=== PATIENT | male | born 1975 | race American Indian/Alaskan Native ===

== ENCOUNTER 2017-09-13 20:58 | Emergency (ER) | payer OTHER ==
[2017-09-13 21:24] VITALS: BP 164/122
[2017-09-13 21:57] LABS: Basophils % (Auto) 0.8 % (0.0-1.8); Hematocrit 40.3 % (35.5-45.6); Hemoglobin 13.2 gm/dl (11.8-15.2); Lymphocytes # (Auto) 0.7 K/mm3 (1.2-5.4); Lymphocytes % (Auto) 13.3 % (13.4-35.0); Mean Corpuscular HGB Conc 33 % (32-34); Mean Corpuscular Hemoglobin 27 pg (28-32); Mean Corpuscular Volume 82 fl (84-94); Monocytes # (Auto) 0.2 K/mm3 (0.0-0.8); Monocytes % (Auto) 3.5 % (0.0-7.3); Platelet Count 275 K/mm3 (140-440); Red Blood Count 4.92 M/mm3 (3.65-5.03); Red Cell Distribution Width 14.9 % (13.2-15.2)
[2017-09-13 22:01] LABS: BUN/Creatinine Ratio 12; Blood Urea Nitrogen 12 mg/dL (9-20); Calcium 9.2 mg/dL (8.4-10.2); Hemolysis Index 7
--- NOTE | 2017-09-13 22:51 | XRay Report ---
FINAL REPORT EXAM: XR CHEST ROUTINE 2V HISTORY: Shortness of breath TECHNIQUE: Two view chest PA and lateral PRIORS: None. FINDINGS: Cardiac and mediastinal contours are unremarkable. No focal pulmonary infiltrate is identified. No pleural fluid collection seen. Pulmonary vasculature is unremarkable. IMPRESSION: Negative two-view chest
== END 2017-09-14 01:40 | disposition left against medical advice (07) ==
LOC: ED 20:58
DX: R07.89 Other chest pain (principal); R06.02 Shortness of breath; Z53.21 Procedure and treatment not carried out due to patient leaving prior to being seen by health care provider
CPT/HCPCS: 36415; 71046; 80048; 84484; 85025; 93005; 93010

== ENCOUNTER 2017-09-18 13:53 | Emergency (ER) | payer OTHER ==
[2017-09-18 15:08] VITALS: BP 172/120
[2017-09-18 15:50] LABS: Basophils # (Auto) 0.1 K/mm3 (0.0-0.1); Basophils % (Auto) 0.9 % (0.0-1.8); Eosinophils # (Auto) 0.3 K/mm3 (0.0-0.4); Eosinophils % (Auto) 3.6 % (0.0-4.3); Hematocrit 40.1 % (35.5-45.6); Lymphocytes # (Auto) 1.5 K/mm3 (1.2-5.4); Lymphocytes % (Auto) 21.5 % (13.4-35.0); Mean Corpuscular HGB Conc 32 % (32-34); Mean Corpuscular Hemoglobin 27 pg (28-32); Mean Corpuscular Volume 84 fl (84-94); Monocytes % (Auto) 13.7 % (0.0-7.3); Platelet Count 257 K/mm3 (140-440); Red Blood Count 4.78 M/mm3 (3.65-5.03); Red Cell Distribution Width 14.9 % (13.2-15.2)
[2017-09-18 16:10] LABS: BUN/Creatinine Ratio 14; Blood Urea Nitrogen 17 mg/dL (9-20); Calcium 9.1 mg/dL (8.4-10.2); Hemolysis Index 1
--- NOTE | 2017-09-18 19:07 | XRay Report ---
FINAL REPORT EXAM: XR CHEST ROUTINE 2V HISTORY: Shortness of breath TECHNIQUE: Chest, two views PRIORS: 09/13/2017 FINDINGS: The heart size is normal. Mediastinal contours are normal. Pulmonary vasculature is not congested. The lungs are clear. There are no pleural effusion seen. There is no evidence of pneumothorax. IMPRESSION: There is no acute abnormality identified.
== END 2017-09-18 22:22 | disposition left against medical advice (07) ==
LOC: ED 13:53
DX: R52 Pain, unspecified (principal); Z53.21 Procedure and treatment not carried out due to patient leaving prior to being seen by health care provider
CPT/HCPCS: 36415; 71046; 80048; 85025; 93005; 93010

== ENCOUNTER 2019-06-18 23:33 | Emergency (ER) | payer OTHER ==
[2019-06-18] MEDS ORDERED: ASPIRIN 325 MG TAB PO ONE (23:41)
[2019-06-19 00:08] LABS: Basophils # (Auto) 0.1 K/mm3 (0.0-0.1); Basophils % (Auto) 1.3 % (0.0-1.8); Eosinophils # (Auto) 0.1 K/mm3 (0.0-0.4); Eosinophils % (Auto) 2.1 % (0.0-4.3); Hematocrit 38.9 % (35.5-45.6); Hemoglobin 13.3 gm/dl (11.8-15.2); Lymphocytes # (Auto) 1.3 K/mm3 (1.2-5.4); Lymphocytes % (Auto) 19.5 % (13.4-35.0); Mean Corpuscular HGB Conc 34 % (32-34); Mean Corpuscular Volume 81 fl (84-94); Monocytes # (Auto) 0.6 K/mm3 (0.0-0.8); Monocytes % (Auto) 9.4 % (0.0-7.3); Platelet Count 173 K/mm3 (140-440); Red Blood Count 4.79 M/mm3 (3.65-5.03); Red Cell Distribution Width 14.6 % (13.2-15.2)
[2019-06-19 00:31] LABS: BUN/Creatinine Ratio 12; Blood Urea Nitrogen 15 mg/dL (9-20); Calcium 8.8 mg/dL (8.4-10.2); Hemolysis Index 4
--- NOTE | 2019-06-19 00:36 | XRay Report ---
CHEST 1 VIEW INDICATION / CLINICAL INFORMATION: Chest Pain. COMPARISON: 09/18/2017 FINDINGS: SUPPORT DEVICES: None. HEART / MEDIASTINUM: No significant abnormality. LUNGS / PLEURA: Interstitial markings are slightly prominent. I believe this represents some borderli ne interstitial pulmonary edema. The lungs are otherwise clear. No evidence of pneumonia or pleural e ffusion. No pneumothorax. ADDITIONAL FINDINGS: No significant additional findings. IMPRESSION: 1. Borderline interstitial pulmonary edema. Signer Name: Ev Aguirre MD Signed: 06/19/2019 12:31 AM Workstation Name: [id number]
[2019-06-19] MEDS ORDERED: POTASSIUM CHLORIDE ER 20 MEQ TAB PO ONE (00:45)
--- NOTE | 2019-06-19 01:06 | Emergency Department Report ---
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 It lasted for about 30 minutes until the patient took 2 baby aspirin. It was associated with some shortness of breath. Currently he denies any symptoms. Patient also presents with very elevated blood pressure. He admits to a history of hypertension and medication noncompliance. He is a tobacco smoker but denies any illicit drug use. Denies any family history of early cardiac disease or events. No recent travel or sick contacts at home. - Related Data Previous Rx's Medication Instructions Recorded Last Taken Type Amoxicillin [Amoxicillin TAB] 875 mg PO BID #14 tablet 07/15/16 Unknown Rx Fluticasone [Flonase] 1 spray NS QDAY #1 bottle 07/15/16 Unknown Rx guaiFENesin/CODEINE [Robitussin AC] 10 ml PO QHS PRN #50 ml 07/15/16 Unknown Rx predniSONE [Deltasone] 50 mg PO QDAY #5 tab 07/15/16 Unknown Rx Allergies Allergy/AdvReac Type Severity Reaction Status Date / Time acetaminophen [From Percocet] Allergy Rash Verified 09/18/17 15:13 oxycodone [From Percocet] Allergy Rash Verified 09/18/17 15:13 Heart Score - HEART Score History: Slightly suspicious EKG: Non-specific Age: < 45 Risk factors: 1-2 risk factors Troponin: < normal limit HEART Score: 2 - Critical Actions Critical Actions: 0-3 pts:0.9-1.7%risk of adverse cardiac event.Candidate for discharge ED Review of Systems ROS: Stated complaint: CHEST PAIN Other details as noted in HPI Comment: All other systems reviewed and negative Constitutional: denies: chills, fever Eyes: denies: eye pain, vision change ENT: denies: ear pain, throat pain Respiratory: shortness of breath (resolved). denies: cough Cardiovascular: chest pain (resolved). denies: palpitations Gastrointestinal: denies: abdominal pain, vomiting Genitourinary: denies: dysuria, discharge Musculoskeletal: denies: back pain, arthralgia Skin: denies: rash, lesions Neurological: denies: headache, weakness ED Past Medical Hx - Past Medical History Previous Medical History?: Yes Hx Hypertension: Yes (no meds) - Surgical History Past Surgical History?: No - Social History Smoking Status: Current Every Day Smoker Substance Use Type: Alcohol - Medications Home Medications: Home Medications Medication Instructions Recorded Confirmed Last Taken Type Amoxicillin [Amoxicillin TAB] 875 mg PO BID #14 tablet 07/15/16 Unknown Rx Fluticasone [Flonase] 1 spray NS QDAY #1 bottle 07/15/16 Unknown Rx guaiFENesin/CODEINE [Robitussin AC] 10 ml PO QHS PRN #50 ml 07/15/16 Unknown Rx predniSONE [Deltasone] 50 mg PO QDAY #5 tab 07/15/16 Unknown Rx ED Physical Exam - General Limitations: No Limitations - Other Other exam information: GENERAL: The patient is well-developed well-nourished. HENT: Normocephalic. Atraumatic. Patient has moist mucous membranes. EYES: Extraocular motions are intact. NECK: Supple. Trachea is midline. CHEST/LUNGS: Clear to auscultation. There is no respiratory distress noted. HEART/CARDIOVASCULAR: Regular. There is no tachycardia. There is no murmur. ABDOMEN: Abdomen is soft, nontender. Patient has normal bowel sounds. There is no abdominal distention. SKIN: Skin is warm and dry. NEURO: The patient is awake, alert, and oriented. The patient is cooperative. The patient has no focal neurologic deficits. Normal speech. MUSCULOSKELETAL: There is no tenderness or deformity. There is no evidence of acute injury. ED Course Vital Signs 06/18/19 06/19/19 06/19/19 23:39 00:56 00:58 Temperature 98.5 F Pulse Rate 120 H 111 H Respiratory 18 19 16 Rate Blood Pressure 190/123 Blood Pressure 191/114 [Left] O2 Sat by Pulse 98 98 Oximetry 06/19/19 06/19/19 06/19/19 01:00 01:15 01:30 Temperature Pulse Rate 110 H 106 H 92 H Respiratory 22 20 12 Rate Blood Pressure 177/125 179/114 148/93 Blood Pressure [Left] O2 Sat by Pulse Oximetry 11/15/19 11/15/19 11/15/19 01:35 01:45 02:00 Temperature Pulse Rate 107 H 92 H 92 H Respiratory 16 20 Rate Blood Pressure 141/95 152/98 Blood Pressure [Left] O2 Sat by Pulse Oximetry 06/19/19 06/19/19 06/19/19 02:15 02:30 02:45 Temperature Pulse Rate 91 H 87 86 Respiratory 26 H 27 H 14 Rate Blood Pressure 151/98 141/91 146/93 Blood Pressure [Left] O2 Sat by Pulse Oximetry 06/19/19 06/19/19 03:00 03:15 Temperature Pulse Rate 87 89 Respiratory 17 20 Rate Blood Pressure 145/97 158/112 Blood Pressure [Left] O2 Sat by Pulse Oximetry CAMERON score - Cameron Score Age > 65: (0) No Aspirin use within the Past 7 Days: (1) Yes 3 or more CAD Risk Factors: (0) No 2 or more Angina events in past 24 hrs: (0) No Known CAD with more than 50% Stenosis: (0) No Elevated Cardiac Markers: (0) No ST Deviation Greater than 0.5mm: (1) Yes CAMERON Score: 2 ED Medical Decision Making - Lab Data Result diagrams: 06/18/19 23:56 06/18/19 23:56 - EKG Data -: EKG Interpreted by Me EKG shows normal: sinus rhythm, axis (left axis deviation), intervals, QRS complexes (LVH), ST-T waves (early repolarization) Rate: normal - EKG Data When compared to previous EKG there are: previous EKG unavailable Interpretation: LVH (with early repolarization) - Radiology Data Radiology results: image reviewed interpreted by me: Chest x-ray does not show any acute process. There are no pleural effusions, obvious pneumonia and there is no pneumothorax. - Medical Decision Making This patient presents to the emergency department asymptomatic but he had some left-sided chest pain while at work prior to presentation. It lasted for a total of about 30 minutes and resolved and did not return. His EKG shows some LVH with some early repolarization but does not appear consistent with any ST elevation [place] or significant dysrhythmia. Labs have been unremarkable including negative troponins 2. Patient was given a dose of labetalol and his blood pressure came down to a much more reasonable level. He has a history of hypertension and admits to medication noncompliance. The patient was r eevaluated multiple times over about 3 hours in the emergency department and there has been no return of his chest pain. He is low on the heart and CAMERON score. He has good outpatient follow-up with primary care. The patient appears safe for discharge home at this time. His information has been sent over to [facility] for someone to contact him for close outpatient follow-up. He has been instructed to return to the emergency Department with any return of his chest pain or with any acute distress. - Differential Diagnosis [place], costochondritis, pneumonia, CHF Critical Care Time: No Critical care attestation.: If time is entered above; I have spent that time in minutes in the direct care of this critically ill patient, excluding procedure time. ED Disposition Clinical Impression: Chest pain Qualifiers: Chest pain type: unspecified Qualified Code(s): R07.9 - Chest pain, unspecified Hypertension Qualifiers: Hypertension type: essential hypertension Qualified Code(s): I10 - Essential (primary) hypertension Disposition: TO HOME OR SELFCARE Is pt being admited?: No Condition: Stable Instructions: Chest Pain (ED), Hypertension (ED) Additional Instructions: Please follow-up with your primary care physician in the next few days. Take your blood pressure medications as previously prescribed. Try and stay away from foods that are high in salt and caffeinated products to help with your bloo d pressure. Keep a blood pressure log. Please try and quit smoking. I have sent your contact information over to [facility] and someone from their office should be contacting you soon for close outpatient follow-up. Return to the emergency Department with any return of your chest pain, worsening of your symptoms, or with any acute distress. Referrals: JUAN MIGUEL BILL MD [Staff Physician] - 2-3 Days [facility] [Provider Group] - 2-3 Days Time of Disposition: 03:11
[2019-06-19 03:18] VITALS: BP 158/112
== END 2019-06-19 03:58 | disposition home or self-care (01) ==
LOC: ED 23:33
DX: R07.89 Other chest pain (principal); R06.02 Shortness of breath; I10 Essential (primary) hypertension; F17.200 Nicotine dependence, unspecified, uncomplicated; Z88.6 Allergy status to analgesic agent; Z88.5 Allergy status to narcotic agent
CPT/HCPCS: 36415; 71045; 80048; 84484; 85025; 93005; 93010; 96374